=== PATIENT | female | born 1950 | race Caucasian/White ===

== ENCOUNTER → 2016-12-15 | Outpatient (CLI) | payer OTHER, MEDICARE | LOC: BMCIMAGING 14:20 | PROVIDERS: ATTEND Internal Medicine | DX: Z13.820 Encounter for screening for osteoporosis (principal); M85.80 Other specified disorders of bone density and structure, unspecified site ==

== ENCOUNTER 2017-01-25 06:48 | Day surgery (SDC) | payer OTHER, MEDICARE ==
[2017-01-25] MEDS ORDERED: LR 1,000 ML IV ONE (07:42)
[2017-01-25] MEDS ORDERED: LIDOCAINE 1% 2 ML INJ ID PRN (07:42)
--- NOTE | 2017-01-25 07:51 | PDANEPAE ---
ANE History of Present Illness Utertine bleeding ANE Past Medical History - Cardiovascular History Hx Hypertension: No Hx Arrhythmias: No Hx Chest Pain: No Hx Coronary Artery / Peripheral Vascular Disease: No Hx CHF / Valvular Disease: No Hx Palpitations: No - Pulmonary History Hx COPD: No Hx Asthma/Reactive Airway Disease: No Hx Recent Upper Respiratory Infection: No Hx Oxygen in Use at Home: No - Neurologic History Hx Dementia: No - Endocrine History Hx Diabetes: No - Renal History Hx Renal Disorders: No - Liver History Hx Hepatic Disorders: No - Neurological & Psychiatric Hx Hx Neurological and Psychiatric Disorders: No - Congenital Disorder History Hx Congenital Disorders: No - GI History Hx Gastrointestinal Disorders: Yes ANE Review of Systems - Exercise capacity METS (RN): 5 METS ANE Patient History - Allergies Allergies/Adverse Reactions: Penicillins Allergy (Verified 01/12/17 14:11) Swelling/neck,face,throat Sulfa (Sulfonamide Antibiotics) Allergy (Verified 01/12/17 14:11) Other-Enter Comments - Home Medications Home Medications: Levothyroxine [Synthroid 100 mcg (RX)] 02/19/13 [Last Taken 01/25/17] Herbals/Supplements -Info Only 01/12/17 [Last Taken 01/18/17] Hrt Base 01/12/17 [Last Taken 01/25/17] - Smoking Hx Smoking Status: Former smoker - Family Anes Hx Family Hx Anesthesia Complications: none ANE Labs/Vital Signs - Vital Signs Height: 153.67 cm Weight: 52.163 kg
[2017-01-25] MEDS ORDERED: MIDAZOLAM 2 MG/2 ML VIAL IVP ONE (07:52)
[2017-01-25] MEDS ORDERED: PROPOFOL/EMULSION 500 MG/50 ML BOTTLE IV ONE (08:01)
[2017-01-25] MEDS ORDERED: MIDAZOLAM 2 MG/2 ML VIAL ONE (08:01)
--- NOTE | 2017-01-25 08:15 | PDHPUP ---
History & Physical Update H&P update statement: This history and physical update is based on an assessment of the patient which was completed after admission or registration (within 24 hours), but prior to the surgery/procedure. H&P update: H&P reviewed & patient examined, no change in patient's condition since H&P completed
[2017-01-25] MEDS ORDERED: NALOXONE HCL 0.4 MG/ML INJ IVP PRN (09:15)
[2017-01-25] MEDS ORDERED: ONDANSETRON 4 MG/2 ML VIAL IVP PRN (09:15)
[2017-01-25] MEDS ORDERED: fentaNYL 100 MCG/2 ML INJ ONE (09:24)
--- NOTE | 2017-01-25 09:33 | POSTANESTH ---
Post Anesthetic Evaluation Cardiovascular Status: Normal, Stable Respiratory Status: Normal, Stable Level of Consciousness/Mental Status: Can Participate in Eval Pain Control: Adequate, Prn Tx Ordered Nausea/Vomiting Control: Adequate, Prn Tx Ordered Complications Possibly Related to Anesthesia: None Noted (started Fentanyl in pacu, otherwise awake alert, without complications)
[2017-01-25 09:58] VITALS: TEMP 97.5
--- NOTE | 2017-01-25 10:12 | POSTOPPROG ---
Post Op Note Date of Operation: 01/25/17 Surgeon: Farhana Ramirez Anesthesiologist: Dewayne Matthews Anesthesia: LMA Pre-op Diagnosis: PMB, thick endometrium, stenotic cervix Post-op Diagnosis: same Indication: PMB Procedure: H/S polypectomy and D&C Findings: atrophic endometrium Inf/Abcess present in the surg proc area at time of surgery?: No EBL: Minimal Complications: none
[2017-01-25 10:17] VITALS: BP 102/63; PULSE 51; RESP 16; O2SAT 97
--- NOTE | 2017-01-26 04:14 | GOP ---
[f rep st] OPERATIVE REPORT DATE OF OPERATION: 01/25/2017 SURGEON: Farhana Ramirez MD ANESTHESIA: General LMA. ANESTHESIOLOGIST: Dewayne Matthews MD. PREOPERATIVE DIAGNOSIS: 1. Postmenopausal bleeding. 2. Thick endometrial stripe. 3. Stenotic cervix. POSTOPERATIVE DIAGNOSIS: 1. Postmenopausal bleeding. 2. Thick endometrial stripe. 3. Stenotic cervix. PROCEDURE PERFORMED: Hysteroscopic polypectomy with dilatation and curettage. FINDINGS: A small endometrial polyp and some minimal tissue in the endometrium and very stenotic ce rvix. ESTIMATED BLOOD LOSS: Minimal. INDICATIONS: Patient is a 66-year-old, referred by Dr. Sunita Uriostegui for evaluation of postmenopausal bleeding. Attempted biopsy in the office was unsuccessful due to a very stenotic cervix. Pelvic ul trasound showed a 6 to 7 mm endometrial stripe with some irregular cystic areas. Re-attempt at biop sy with premedication with Cytotec redone and again unsuccessful. Will plan repeat premedication wi th misoprostol and Estrace cream under anesthesia. DESCRIPTION OF PROCEDURE: With informed consent signed, patient was taken to the operating room and placed under general anesthesia, placed in a low dorsal lithotomy position, prepped and draped in t he usual sterile fashion. Tenaculum placed on the anterior, then posterior lip of the cervix and ve ry gentle and slow dilation of the cervical os up to 9.5 mm. This took 15 minutes to dilate. Once I was able to pass a 9.5 mm dilator, the hysteroscope placed using normal saline as a filling medium and [employer] Morcellator. Hysteroscope placed in the uterine cavity. Findings as noted ab ove and then the [employer] true clear morcellator placed through the hysteroscope. Resection of the above tissue done. Once it was felt that the entire endometrial cavity had been biopsied, t he morcellator removed. Hemostasis was noted and the net fluid deficit was less than 300 cc. Patie nt placed in supine position, awakened in the operating room, taken to the recovery room in stable c ondition and tolerated the procedure well. COMPLICATIONS: None. /[id number]/MODL
== END 2017-01-25 10:35 | disposition home or self-care (01) ==
LOC: FSGY 06:48
PROVIDERS: ATTEND Obstetrics & Gynecology Gynecology
PROC: 0UB98ZX Excision of Uterus, Via Natural or Artificial Opening Endoscopic, Diagnostic (ICD-10-PCS; principal; 2017-01-25 08:15)
PROC: 0UDB8ZX Extraction of Endometrium, Via Natural or Artificial Opening Endoscopic, Diagnostic (ICD-10-PCS; principal; 2017-01-25 08:15)
DX: N95.0 Postmenopausal bleeding (principal); N88.2 Stricture and stenosis of cervix uteri; N84.0 Polyp of corpus uteri
CPT/HCPCS: 58558; C1782; J2250; J2704; J3010

== ENCOUNTER → 2018-06-28 | Outpatient (CLI) | payer OTHER, MEDICARE | LOC: BMCIMAGING 14:45 | PROVIDERS: ATTEND Internal Medicine | DX: Z12.31 Encounter for screening mammogram for malignant neoplasm of breast (principal) ==